=== PATIENT | female | born 1975 | race African-American/Black ===

== ENCOUNTER 2016-09-13 13:47 | Emergency (ER) | payer OTHER ==
[~2016-09-13] VITALS: Ht 165.1 cm; Wt 70.0 kg
[~2016-09-13 13:47] MED LIST: CEFT250T8 PO; ONDA1TAB17 PO
[2016-09-13 13:53] VITALS: BP 175/94; PULSE 99; RESP 18; TEMP 98.1; O2SAT 98
--- NOTE | 2016-09-13 15:29 | PD ---
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 She says in the past she's been able to use tampons but today she's had to go through 15 pads and she soaked through her dress. She is very embarrassed and she feels lightheaded and dizzy. She didn't feel safe driving home. She has a history of endometriosis and in the past she consider getting a hysterectomy but she felt that she had it under control. She did try control pills at one point but she had a lot of negative side effects. PFSH Past Medical History Anemia: Yes Gastrointestinal Disorders: Yes (IBS) Genitourinary: Yes (ENDOMET) Migraines: Yes (dizziness with migraines) ?: Not Past Surgical History Appendectomy: Yes Social History Alcohol Use: No Tobacco Use: No Substance Use: No Allergies-Medications (Allergen,Severity, Reaction): Coded Allergies: Sulfa (Verified Allergy, Intermediate, Rash, 09/13/16) Reported Meds & Prescriptions Reported Meds & Active Scripts Active No Active Prescriptions or Reported Medications Review of Systems Except as stated in HPI: all other systems reviewed are Neg Physical Exam Narrative GENERAL:Well appearing, no acute distress SKIN: Warm and dry. HEAD: Atraumatic. Normocephalic. EYES: Pupils equal and round. No injection or drainage. ENT: Moist mucous membranes NECK: Trachea midline. CARDIOVASCULAR: Regular rate and rhythm. No murmur appreciated. RESPIRATORY: Clear to auscultation. Breath sounds equal bilaterally. GASTROINTESTINAL: Abdomen soft, tender to palpation in the suprapubic region with no rebound or guarding. 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 MUSCULOSKELETAL: No obvious deformities. NEUROLOGICAL: Awake and alert. No obvious cranial nerve deficits. Moving all extremities. PSYCHIATRIC: Appropriate mood and affect; insight and judgment normal. Data Data Last Documented VS Vital Signs Date Time Temp Pulse Resp B/P Pulse Ox O2 Delivery O2 Flow Rate FiO2 09/13/16 13:53 98.1 99 18 175/94 98 Orders Complete Blood Count With Diff (09/13/16 15:21) Ed Urine Pregnancytest Poc (09/13/16 15:21) Basic Metabolic Panel (Bmp) (09/13/16 15:21) ^ Insert Iv (09/13/16 15:21) Sodium Chlor 0.9% 1000 Ml Inj (Ns 1000 M (09/13/16 15:30) Ketorolac Inj (Toradol Inj) (09/13/16 15:30) Us Pelvis Comp Air Traffic Instructor/Non-Preg (09/13/16 ) Labs Laboratory Tests Test 09/13/16 16:25 White Blood Count 11.2 TH/MM3 Red Blood Count 4.60 MIL/MM3 Hemoglobin 13.7 GM/DL Hematocrit 41.1 % Mean Corpuscular Volume 89.3 FL Mean Corpuscular Hemoglobin 29.9 PG Mean Corpuscular Hemoglobin 33.4 % Concent Red Cell Distribution Width 14.4 % Platelet Count 209 TH/MM3 Mean Platelet Volume 8.7 FL Neutrophils (%) (Auto) 82.6 % Lymphocytes (%) (Auto) 12.3 % Monocytes (%) (Auto) 4.3 % Eosinophils (%) (Auto) 0.1 % Basophils (%) (Auto) 0.7 % Neutrophils # (Auto) 9.3 TH/MM3 Lymphocytes # (Auto) 1.4 TH/MM3 Monocytes # (Auto) 0.5 TH/MM3 Eosinophils # (Auto) 0.0 TH/MM3 Basophils # (Auto) 0.1 TH/MM3 CBC Comment DIFF FINAL Differential Comment Sodium Level 137 MEQ/L Potassium Level 4.1 MEQ/L Chloride Level 106 MEQ/L Carbon Dioxide Level 25.6 MEQ/L Anion Gap 5 MEQ/L Blood Urea Nitrogen 11 MG/DL Creatinine 0.78 MG/DL Estimat Glomerular Filtration 98 ML/MIN Rate Random Glucose 78 MG/DL Calcium Level 9.1 MG/DL [facility] Medical Decision Making Medical Screen Exam Complete: Yes Emergency Medical Condition: Yes Interpretation(s) Afebrile, some tachycardia No anemia Electrolytes are reassuring Differential Diagnosis Menorrhagia, fibroid uterus, anemia, miscarriage, neoplasm Narrative Course This is a 41-year-old female who presents to the emergency department with heavy vaginal bleeding that's been present for 3 weeks but worsened today. She says she changed 14 pads today. She states 1 pad an hour here in the emergency department and is starting to feel little bit lightheaded. She was given a liter of IV fluid. Labs are obtained which demonstrated normal hemoglobin. I ordered a pelvic ultrasound given the degree of bleeding I appreciated on exam. Patient will be reassessed by Dr. Sheth. Scripts No Active Prescriptions or Reported Meds Shila Bhandari MD Sep 13, 2016 15:28
[2016-09-13] MEDS ORDERED: SODIUM CHLOR 0.9% 1000 ML INJ 1,000 ML IV ONE (15:30)
[2016-09-13] MEDS ORDERED: KETOROLAC TROMETHAMINE 30 MG/ML (IVP) VIAL IV PUSH ONE (15:30)
[2016-09-13 17:00] LABS: AUTOMATED NEUTROPHIL # 9.3 TH/MM3 (1.8-7.7); BASOPHIL # 0.1 TH/MM3 (0-0.2); BASOPHIL % 0.7 % (0.0-2.0); EOSINOPHIL % 0.1 % (0.0-4.0); HEMATOCRIT 41.1 % (35.0-46.0); HEMO FLAGS DIFF FINAL; LYMPH % 12.3 % (9.0-44.0); LYMPHOCYTE # 1.4 TH/MM3 (1.0-4.8); MEAN CELL VOLUME 89.3 FL (80.0-100.0); MEAN CORPUSCULAR HEMOGLOBIN 29.9 PG (27.0-34.0); MEAN CORPUSCULAR HGB CONC 33.4 % (32.0-36.0); MONO % 4.3 % (0.0-8.0); NEUT % 82.6 % (16.0-70.0); PLATELET COUNT 209 TH/MM3 (150-450); RED CELL DISTRIBUTION WIDTH 14.4 % (11.6-17.2); WHITE BLOOD COUNT 11.2 TH/MM3 (4.0-11.0)
--- NOTE | 2016-09-13 17:24 | PD ---
Physical Exam Narrative Received sign out from previous provider to follow up labs, ultrasound and reevaluate. 41yo F with IBS, endometriosis here with heavy menstrual period for 3 weeks. States that she has had heavy menstrual period from her endometriosis but never lasting this long. Pt seen and evaluated at bedside. Complaining of not feeling well from the heavy bleeding. Denies any chest pain, sob, n/v, abdominal pain. Abdomen is soft, NT/ND. Labs reviewed, H/H stable at 13.7/ 41.1. Urine negative. US showed uterus unremarkable except for subcentimeter nabothian cyst. Left ovary not visualized. No adnexal mass or free fluid identified. Pt reevaluated after zofran and NS IVF. Pt feels better and wants to go home. Return precautions given. Data Data Last Documented VS Vital Signs Date Time Temp Pulse Resp B/P Pulse Ox O2 Delivery O2 Flow Rate FiO2 09/13/16 13:53 98.1 99 18 175/94 98 Orders Complete Blood Count With Diff (09/13/16 15:21) Ed Urine Pregnancytest Poc (09/13/16 15:21) Basic Metabolic Panel (Bmp) (09/13/16 15:21) ^ Insert Iv (09/13/16 15:21) Sodium Chlor 0.9% 1000 Ml Inj (Ns 1000 M (09/13/16 15:30) Ketorolac Inj (Toradol Inj) (09/13/16 15:30) Ondansetron Inj (Zofran Inj) (09/13/16 18:15) Us Pelvis Comp W Transvaginal (09/13/16 ) Labs Laboratory Tests Test 09/13/16 16:25 White Blood Count 11.2 TH/MM3 Red Blood Count 4.60 MIL/MM3 Hemoglobin 13.7 GM/DL Hematocrit 41.1 % Mean Corpuscular Volume 89.3 FL Mean Corpuscular Hemoglobin 29.9 PG Mean Corpuscular Hemoglobin 33.4 % Concent Red Cell Distribution Width 14.4 % Platelet Count 209 TH/MM3 Mean Platelet Volume 8.7 FL Neutrophils (%) (Auto) 82.6 % Lymphocytes (%) (Auto) 12.3 % Monocytes (%) (Auto) 4.3 % Eosinophils (%) (Auto) 0.1 % Basophils (%) (Auto) 0.7 % Neutrophils # (Auto) 9.3 TH/MM3 Lymphocytes # (Auto) 1.4 TH/MM3 Monocytes # (Auto) 0.5 TH/MM3 Eosinophils # (Auto) 0.0 TH/MM3 Basophils # (Auto) 0.1 TH/MM3 CBC Comment DIFF FINAL Differential Comment Sodium Level 137 MEQ/L Potassium Level 4.1 MEQ/L Chloride Level 106 MEQ/L Carbon Dioxide Level 25.6 MEQ/L Anion Gap 5 MEQ/L Blood Urea Nitrogen 11 MG/DL Creatinine 0.78 MG/DL Estimat Glomerular Filtration 98 ML/MIN Rate Random Glucose 78 MG/DL Calcium Level 9.1 MG/DL MDM Supervised Visit with ENRIQUE: No Diagnosis Primary Impression: Menorrhagia Qualified Code: N92.1 - Menorrhagia with irregular cycle Referrals: Minerva Sanchez MD 1 day Patient Instructions: General Instructions Departure Forms: Tests/Procedures Additional Instruction: Please follow up with your BREAKDOWN PERSON in 1-2 days. Return to the ED if symptoms worsen. Med/Other Pt SpecificInfo: No Change to Meds Scripts No Active Prescriptions or Reported Meds Disposition: 01 DISCHARGE HOME Condition: Stable Soledad Sheth Sep 13, 2016 17:24
[2016-09-13 17:26] LABS: BICARBONATE 25.6 MEQ/L (21.0-32.0)
[2016-09-13 17:33] LABS: POTASSIUM 4.1 MEQ/L (3.5-5.1)
[2016-09-13] MEDS ORDERED: ONDANSETRON HCL 4 MG/2 ML VIAL IV PUSH ONE (18:15)
--- NOTE | 2016-09-13 19:23 | RADRPT ---
EXAM DATE/TIME: 09/13/2016 18:16 [place] COMPARISON: No previous studies available for comparison. INDICATIONS : Severe vaginal bleeding. MEDICAL HISTORY : . Migraines. Endometriosis. Anemia. Irritable bowel syndrome. SURGICAL HISTORY : Appendectomy. ENCOUNTER: Initial ACUITY: 3 weeks PAIN SCORE: 7/10 LOCATION: Bilateral pelvis MEASUREMENTS: UTERUS: 11.0 x 6.2 x 5.0 cm ENDOMETRIAL STRIPE: 8 mm RIGHT OVARY: 3.8 x 2.8 x 1.8 cm LEFT OVARY: Non visualized FINDINGS: UTERUS: The myometrium has homogeneous echotexture without mass. Small nabothian cyst in the cervix RIGHT OVARY: Ovary contains no mass or significant cystic lesion. LEFT OVARY: Not visualized MISCELLANEOUS: No free fluid. CONCLUSION: 1. Uterus unremarkable except for subcentimeter nabothian cyst. Left ovary not visualized. No adnexal mass or free fluid identified. Alfredito Landrum MD on September 13, 2016 at 19:20 Board Certified Radiologist. This report was verified electronically.
== END 2016-09-13 19:44 | disposition home or self-care (01) ==
LOC: NEPB 13:47
DX: N92.1 Excessive and frequent menstruation with irregular cycle (principal)
CPT/HCPCS: 76830; 76856; 80048; 84703; 85025; 96361; 96374; 96375; 99284; J1885; J2405; J7030